=== PATIENT | female | born 1970 | race Caucasian/White ===

== ENCOUNTER → 2020-12-28 10:01 | Outpatient (BNVA) | payer BC, SELFPAY | PROVIDERS: Visit Provider Family Medicine | DX: Z13.6 Encounter for screening for cardiovascular disorders (principal); E66.01 Morbid (severe) obesity due to excess calories | CPT/HCPCS: 80053; 80061; 82306; 85025 ==

== ENCOUNTER 2021-03-17 10:27 | Outpatient (CLI) | payer BC, SELFPAY ==
--- NOTE | 2021-03-17 10:30 | MM_ITS ---
WS: [email or web address] SCREENING DIGITAL MAMMOGRAM WITH CAD HISTORY: screening mammogram COMPARISON: None available. Bilateral CC and MLO views submitted. Computer aided detection analyzed. Breast composition: There are scattered areas of fibroglandular density. Seen on the LEFT MLO project ion is a 14 mm nodule just superior to the nipple in the anterior breast. Asymmetry is probably just posterior to the nipple on the CC projection. Recommend further evaluation. The RIGHT breast is negat mara. MM/[place] [id number] IMPRESSION: BI-RADS: 0-Incomplete: Need additional imaging evaluation FOLLOW UP: Need Additional Imaging LEFT breast: Spot compression views (CC and MLO). True ML. Ultrasound to follow if abnormality persists.
== END 2021-03-17 10:28 | disposition home or self-care (01) ==
PROVIDERS: Visit Provider Family Medicine
DX: Z12.31 Encounter for screening mammogram for malignant neoplasm of breast (principal)
CPT/HCPCS: 77067

== ENCOUNTER 2021-03-29 08:29 | Outpatient (CLI) | payer BC, SELFPAY ==
--- NOTE | 2021-03-29 08:45 | US_ITS ---
WS: [email or web address] ADDITIONAL VIEWS LEFT MAMMOGRAM LEFT BREAST ULTRASOUND HISTORY: abnormal mammo COMPARISON: 03/17/2021 LEFT MAMMOGRAM: Spot compression views and true ML. Spot compression views along the anterior LEFT breast are submitted. There is continued area of incre ased asymmetry and density just posterior lateral to the LEFT nipple. The asymmetry nearly blends int o the soft tissues and this may be normal fibroglandular pattern for this patient. Ultrasound will be performed. LEFT BREAST ULTRASOUND 2-D and color Doppler imaging submitted. Ultrasound is directed posterior to the LEFT areola. No mass is identified. There is no shadowing. No solid or cystic changes. US/US breast LT limited* [id number] IMPRESSION: BI-RADS: 2-Benign FOLLOW UP: 1 Year Follow-up Asymmetry posterior to the LEFT nipple is probably normal asymmetric pattern fo r this patient. By ultrasound no abnormality is identified.
== END 2021-03-29 08:30 | disposition home or self-care (01) ==
LOC: RAD 08:36
PROVIDERS: PCP Family Medicine; Visit Provider Family Medicine
DX: R92.8 Other abnormal and inconclusive findings on diagnostic imaging of breast (principal); N64.89 Other specified disorders of breast
CPT/HCPCS: 76642; 77065

== ENCOUNTER → 2021-12-30 09:23 | Outpatient (BNVA) | payer BC, SELFPAY | PROVIDERS: PCP Family Medicine; Visit Provider Family Medicine | DX: E55.9 Vitamin D deficiency, unspecified (principal); Z13.6 Encounter for screening for cardiovascular disorders; Z86.39 Personal history of other endocrine, nutritional and metabolic disease; G43.101 Migraine with aura, not intractable, with status migrainosus | CPT/HCPCS: 80053; 80061; 82306; 85025 ==

== ENCOUNTER → 2022-12-07 15:51 | Outpatient (BNVA) | payer BC, SELFPAY | PROVIDERS: PCP Family Medicine; Visit Provider Family Medicine | DX: Z13.6 Encounter for screening for cardiovascular disorders (principal); M25.50 Pain in unspecified joint; Z23 Encounter for immunization | CPT/HCPCS: 80053; 80061; 83721; 85025; 85651; 86038; 86140; 86200; 86431 ==

== ENCOUNTER 2022-12-12 13:11 | Outpatient (CLI) | payer BC, SELFPAY ==
--- NOTE | 2022-12-12 13:25 | XR_ITS ---
WS: [email or web address] Exam: XR ankle RT min 3V* [id number] Date/Time of Exam: 12/12/2022 1:28 PM Reason For Exam: bilateral ankle pain No fracture or dislocation. The ankle mortise is equidistant. Normal soft tissues. Prominent heel spu rs. IMPRESSION: 1. Negative RIGHT ankle.
--- NOTE | 2022-12-12 13:25 | XR_ITS ---
WS: [email or web address] Exam: XR ankle LT min 3V* [id number] Date/Time of Exam: 12/12/2022 1:28 PM Reason For Exam: bilateral ankle pain Findings: Multiple views of the ankle reveal no fracture or displacements of bone. No soft tissue swelling is present. There are no periosteal reactions noted. The talus and calcaneus are in adequate position. The joint space is smooth and equidistant. IMPRESSION: Negative LEFT ankle.
== END 2022-12-12 13:12 | disposition home or self-care (01) ==
PROVIDERS: PCP Family Medicine; Visit Provider Family Medicine
DX: M25.572 Pain in left ankle and joints of left foot (principal); M25.571 Pain in right ankle and joints of right foot
CPT/HCPCS: 73610

== ENCOUNTER 2022-12-26 15:14 | Outpatient (CLI) | payer BC, SELFPAY ==
--- NOTE | 2022-12-26 15:19 | MM_ITS ---
WS: [email or web address] Bilateral screening 3D tomosynthesis digital mammogram, 12/26/2022 Clinical Data: screening mammogram Comparison: 03/29/2021, 03/17/2021. Findings: The breast parenchymal pattern shows fibroglandular tissue. No spiculated masses or clustered calcifi cations are seen. There are no secondary signs of carcinoma. Impression: 1. Negative bilateral mammogram unchanged. 2. Recommend annual screening mammograms. MM/[place] [id number] BIRADS: 1-Negative FOLLOW UP: 1 Year Follow-up The CAD cash checker was used.
== END 2022-12-26 15:15 | disposition home or self-care (01) ==
PROVIDERS: PCP Family Medicine; Visit Provider Family Medicine
DX: Z12.31 Encounter for screening mammogram for malignant neoplasm of breast (principal)
CPT/HCPCS: 77063; 77067

== ENCOUNTER → 2023-07-23 15:59 | Outpatient (BNVA) | payer SELFPAY | PROVIDERS: PCP Family Medicine; Visit Provider Family Medicine | DX: Z00.00 Encounter for general adult medical examination without abnormal findings (principal) | CPT/HCPCS: 80048; 80061; 83036 ==

== ENCOUNTER → 2023-10-03 09:59 | Outpatient (BNVA) | payer BC, SELFPAY | PROVIDERS: PCP Family Medicine; Visit Provider Family Medicine | DX: M35.3 Polymyalgia rheumatica (principal) | CPT/HCPCS: 85651; 86140 ==

== ENCOUNTER → 2024-07-16 09:01 | Outpatient (BNVA) | payer BC, SELFPAY | PROVIDERS: PCP Family Medicine; Referring Provider Family Medicine; Visit Provider Psychiatry & Neurology Neurology | DX: R41.9 Unspecified symptoms and signs involving cognitive functions and awareness (principal); R29.898 Other symptoms and signs involving the musculoskeletal system; M79.609 Pain in unspecified limb; R41.89 Other symptoms and signs involving cognitive functions and awareness | CPT/HCPCS: 36415; 80053; 82306; 82525; 82607; 82746; 83735; 83921; 84439; 84443; 85025; 85651; 86140 ==

== ENCOUNTER → 2024-07-28 11:37 | Outpatient (BNVA) | payer BC, SELFPAY | PROVIDERS: PCP Family Medicine; Referring Provider Psychiatry & Neurology Neurology; Visit Provider Internal Medicine Rheumatology | DX: M06.9 Rheumatoid arthritis, unspecified (principal) | CPT/HCPCS: 36415; 82306; 83520; 85651; 86036; 86480; 86704; 86803; 86812; 87340 ==

== ENCOUNTER 2024-07-29 06:40 | Outpatient (CLI) | payer BC, SELFPAY ==
--- NOTE | 2024-07-29 07:00 | MR_ITS ---
WS: [email or web address] MRA HEAD TECHNIQUE: Axial 3-D TOF images obtained with axial images and axial, sagittal, and coronal 2-D reformatted images. CLINICAL INFORMATION: R41.3 - Other amnesia COMPARISON: None. FINDINGS: Distal vertebral arteries are patent. Basilar artery is patent. Normal vascularity to the [employer] territory bilaterally. Both ICAs are patent at the skull base. Normal vascularity to the JESSICA and MCA territories bilaterally. No evidence of proximal flow-limiting stenosis. MR/MR angio head wo con [id number] IMPRESSION: Normal intracranial MRA
--- NOTE | 2024-07-29 07:15 | MR_ITS ---
WS: [email or web address] MRA CAROTID WITHOUT AND WITH GADOLINIUM ENHANCEMENT TECHNIQUE: Axial 2-D TOF and gadolinium bolus images obtained with axial images and axial, sagittal, and coronal 2-D reformatted images. CLINICAL INFORMATION: R41.3 - Other amnesia COMPARISON: None. FINDINGS: RIGHT: RIGHT common carotid artery is patent. No significant RIGHT ICA stenosis. LEFT: LEFT common carotid artery is patent. No significant LEFT ICA stenosis. RIGHT dominant vertebral artery. Small LEFT vertebral artery. Proximal subclavian arteries are patent. MR/MR angio neck w con* [id number] IMPRESSION: Normal neck MRA.
--- NOTE | 2024-07-29 08:00 | MR_ITS ---
WS: [email or web address] MRI HEAD WITHOUT CONTRAST TECHNIQUE: Sagittal T1, T2 axial, T2 axial FLAIR, axial and coronal T1 images, axial susceptibility weighted imaging, axial diffusion weighted images, and coronal T2 images were obtained. CLINICAL INFORMATION: R41.3 - Other amnesia COMPARISON: None. FINDINGS: No evidence of restricted diffusion to suggest acute ischemia. Moderate patchy supratentorial white matter changes. No significant parenchymal volume loss. Normal posterior fossa. Normal vascular flow voids at the skull base. No extra- axial fluid collections. Paranasal sinuses and mastoid air cells are well aerated. No hemosiderin on susceptibility-weighted images. Normal optic chiasm and pituitary infundibulum. Temporal lobes and hippocampal formations are normal in appearance. MR/MR head wo con* [id number] IMPRESSION: 1. No evidence of restricted diffusion to suggest acute ischemia. 2. Moderate patchy supratentorial white matter changes nonspecific in a patien t this age but can be seen with hypertension, diabetes, small vessel changes, a nd possibly demyelinating disease in the appropriate clinical setting. Recommen d correlation with clinical history. 3. No significant parenchymal volume loss. 4. No other acute findings.
== END 2024-07-29 06:41 | disposition home or self-care (01) ==
PROVIDERS: PCP Family Medicine; Visit Provider Psychiatry & Neurology Neurology
DX: R41.3 Other amnesia (principal); R93.0 Abnormal findings on diagnostic imaging of skull and head, not elsewhere classified
CPT/HCPCS: 70544; 70548; 70551

== ENCOUNTER 2024-09-01 07:59 | Outpatient (CLI) | payer BC, SELFPAY ==
[2024-09-01 09:12] LABS: Hematocrit 46.2 % (36-47); Hemoglobin 15.60 g/dL (11.27-16.99); Mean Corpuscular HGB Conc 33.8 g/dL (30-55); Mean Corpuscular Hemoglobin 30.5 pg (27-33); Mean Corpuscular Volume 90.2 fl (85-98); Nucleated Red Blood Cells % 0 %; Platelet Count 225 10^3/cmm (157-399); Red Blood Count 5.12 10^6/uL (3.85-5.65); White Blood Count 9.45 10^3/uL (3.29-11.43)
[2024-09-01 09:37] LABS: Alanine Aminotransferase 24 U/L (0-33); Albumin Level 3.9 g/dL (3.5-5.2); Alkaline Phosphatase 71 U/L (35-105); Aspartate Amino Transferase 16 U/L (0-32); Globulin 3.0 g/dL (1.3-4.6); Total Protein 6.9 g/dL (6.6-8.7)
[2024-09-02 13:44] LABS: COMPLEMENT COMPONENT C3C 188 mg/dL (83-193); COMPLEMENT COMPONENT C4C 27 mg/dL (15-57)
[2024-09-02 14:16] LABS: COMPLEMENT, TOTAL (CH50) >60 U/mL (31-60)
[2024-09-03 04:30] LABS: CENTROMERE B ANTIBODY <1.0 NEG AI (<1.0 NEG); JO-1 ANTIBODY <1.0 NEG AI (<1.0 NEG); RNP ANTIBODY <1.0 NEG AI (<1.0 NEG); SCL-70 ANTIBODY <1.0 NEG AI (<1.0 NEG); SS-B <1.0 NEG AI (<1.0 NEG)
== END 2024-09-01 08:00 | disposition home or self-care (01) ==
PROVIDERS: PCP Family Medicine; Visit Provider Internal Medicine Rheumatology
DX: Z79.899 Other long term (current) drug therapy (principal)
CPT/HCPCS: 36415; 80076; 82565; 85025; 85651; 86140; 86160; 86162; 86235; 86255; 86376

== ENCOUNTER 2024-09-15 14:10 | Outpatient (CLI) | payer BC, SELFPAY ==
--- NOTE | 2024-09-15 14:30 | MR_ITS ---
WS: [email or web address] MRI LUMBAR SPINE NONCONTRAST HISTORY: M48.061 - Spinal stenosis, lumbar region without neurogen... COMPARISON: None available. TECHNIQUE: Sagittal and axial multisequence imaging is submitted. C3-4 and C4-5 disc osteophyte complexes encroaching upon the cervical cord. Small central disc protrusion at T6-7. L4 anterolisthesis by 5 mm. Disc spaces are well preserved. No fractures or marrow edema in the lumbar vertebral bodies. Conus terminates normally at L1-2 disc level. L1-L2: Normal. L2-L3: Mild facet and ligamentum flavum hypertrophy. No stenosis. L3-L4: Mild annular disc bulging with a LEFT foraminal shallow disc protrusion and annular fissure. Moderate ligamentum flavum and facet arthritis. Mild disc encroachment upon the subarticular recesses. Mild disc encroachment upon the exiting LEFT L3 nerve root. L4-L5: Moderate annular disc bulging with moderate ligamentum flavum and facet arthritis. Small central disc protrusion. Mild deformity of the thecal sac. Moderate central, bilateral subarticular recess and mild bilateral foraminal stenosis. There is encroachment upon both the exiting and traversing nerve roots at L4-5. L5-S1: Mild disc bulging with a central disc protrusion. Mild disc contact on the S1 nerve roots, RIGHT greater than LEFT. No foraminal or central stenosis. Paravertebral soft tissues are normal. MR/MR lumbar spine wo/w con [id number] IMPRESSION: 1. L4 anterolisthesis by 5 mm. 2. L4-5: Small central disc protrusion. Moderate facet and ligamentum flavum a rthropathy. Moderate central, bilateral subarticular recess and mild foraminal stenosis. There is mild disc encroachment upon both the L4 and L5 nerve roots. 3. L3-4: LEFT foraminal disc protrusion with annular fissure. Mild disc encroa chment upon the subarticular recesses and the LEFT L3 exiting nerve root. No hi gh-grade stenosis. 4. Small central disc protrusion at L5-S1 with minimal disc contact on the S1 nerve roots.
[2024-09-15] MEDS: iohexol 350 mg/mL 500 mL Btl (per mL) IV (14:47)
--- NOTE | 2024-09-15 15:15 | CT_ITS ---
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 TECHNIQUE: Axial imaging performed through the thorax. Coronal and sagittal reformats are submitted. All CT scans at [facility] use at least one of these dose optimization techniques: automated exposure control; mA and/or kV adjustment per patient size (includes targeted exams where dose is matched to clinical indication); or iterative reconstruction. CONTRAST: Omnipaque 350; 100 mL IV. DLP: 736.75 mGy.cm COMPARISON: None available. Lungs and central airway: Normal. Pleura: Normal. No pleural effusion. Heart and pericardium: Normal size heart with no pericardial effusion. Mediastinum and asya: No mediastinum or hilar adenopathy. No anterior mediastinal mass. Normal appearance of the anterior mediastinal fat. There is no mass. Vessels: Minimal atherosclerosis aorta. Chest wall and lower neck: No soft tissue masses. Upper abdomen: Normal. Osseous structures: No destructive process. CT/CT chest w con* [id number] IMPRESSION: 1. No anterior mediastinal mass identified. There is no evidence for thymic ma ss. 2. No mediastinal or hilar adenopathy. 3. Lungs are clear.
[2024-09-15] MEDS: gadobenate dimeglumine 20 mL vial IV (15:19)
== END 2024-09-15 14:11 | disposition home or self-care (01) ==
LOC: RAD 14:11
PROVIDERS: PCP Family Medicine; Visit Provider Psychiatry & Neurology Neurology
DX: M48.061 Spinal stenosis, lumbar region without neurogenic claudication (principal); M51.26 Other intervertebral disc displacement, lumbar region; D49.89 Neoplasm of unspecified behavior of other specified sites
CPT/HCPCS: 71260; 72158; A9577

== ENCOUNTER → 2024-09-19 10:25 | Outpatient (BNVA) | payer BC, SELFPAY | PROVIDERS: PCP Family Medicine; Referring Provider Psychiatry & Neurology Neurology; Visit Provider Internal Medicine | DX: E03.9 Hypothyroidism, unspecified (principal); E55.9 Vitamin D deficiency, unspecified | CPT/HCPCS: 36415; 82306; 84439; 84443 ==

== ENCOUNTER → 2024-09-29 11:43 | Outpatient (BNVA) | payer BC, SELFPAY | PROVIDERS: PCP Family Medicine; Visit Provider Orthopaedic Surgery | DX: Z79.899 Other long term (current) drug therapy (principal) | CPT/HCPCS: 36415; 80076; 82565; 85025; 85651; 86140 ==

== ENCOUNTER → 2024-12-22 16:36 | Outpatient (BNVA) | payer BC, SELFPAY | PROVIDERS: PCP Family Medicine; Visit Provider Internal Medicine Rheumatology | DX: M06.041 Rheumatoid arthritis without rheumatoid factor, right hand (principal); M06.042 Rheumatoid arthritis without rheumatoid factor, left hand; Z79.899 Other long term (current) drug therapy | CPT/HCPCS: 36415; 80076; 82565; 85025; 85651; 86140; 86225; 86235 ==